=== PATIENT | male | born 1970 | race Caucasian/White ===

== ENCOUNTER 2018-03-28 05:39 | Day surgery (SDC) | payer OTHER ==
[~2018-03-28] VITALS: Ht 167.6 cm; Wt 63.5 kg
--- NOTE | ~2018-03-28 | OP ---
PATIENT NAME: CHARLOTTE PERAZA MEDICAL RECORD: [id number] :74 LOCATION:D[facility] ADMISSION DATE: SURGEON: LUKAS UGALDE MD DATE OF OPERATION: 03/28/2018 PREOPERATIVE DIAGNOSIS: Large reducible symptomatic right inguinal hernia. POSTOPERATIVE DIAGNOSES: 1. Large reducible symptomatic right inguinal pantaloon hernia. 2. Right cord lipoma. PROCEDURES: 1. Open right inguinal hernia with bilayered preperitoneal polypropylene mesh. 2. Excision of right cord lipoma. SURGEON: Lukas Ugalde MD FRAUD MANAGER: None. BLOOD LOSS: Minimal. ANESTHESIA: General. COMPLICATIONS: None. The risks, possible complications and alternatives to the procedure were explained to the patient. He elects to proceed. I saw him in the holding area. He states that he has had this hernia for about a year. Palpation aggravates. Nothing alleviates. We specifically discussed the risk of recurrence of a pseudo-sac hematoma or seroma, the possibility of mesh infection. We also discussed the fact that mesh would have to be used or else the complication rate with recurrence would be very high. OPERATIVE COURSE: The patient was conveyed to the operating room electively on 03/28/2018. General anesthesia was induced by the anesthesia staff. The abdomen and genitals were sterilely prepped and draped. A transverse incision was accomplished in the right groin. Sharp dissection was carried down through skin and subcutaneous tissue as well as Maritza's fascia. The external oblique aponeurosis was opened along the direction of its fibers. I bluntly dissected down through the internal oblique and transverse abdominis muscle layers. A preperitoneal pocket was fashioned bluntly. An indirect hernia was reduced. I opened the hernia sac. There was no sliding component. I excised a portion of the hernia sac and then closed the peritoneum with a running 3-0 Vicryl suture. There was a direct component, which was reduced in its entirety. No femoral component. A right cord lipoma was identified. This was clamped highly. It was then transected with electrocautery. The lipoma was sent to pathology as a single specimen. I then cut 2 ovals out of a polypropylene mesh. The 2 ovals were sutured together one on top of the other with a running #1 Surgidac. The mesh was placed in the preperitoneal space. Once I was satisfied with placement of the mesh, I sutured the muscular layers together with multiple interrupted horizontal mattress 0 Surgidacs. The external oblique aponeurosis was closed OPERATIVE REPORT [id number] CHARLOTTE PERAZA with a running #1 Vicryl. Maritza's fascia was approximated with interrupted 3-0 Vicryls. The subcutaneous adipose tissue was approximated with interrupted 3-0 Vicryls as well. The skin was approximated with a running intracuticular 4-0 Vicryl. Benzoin and Steri-Strips were applied. I had the patient Valsalva. There was no evidence of recurrence or persistent hernia. Both testicles were descended. There is no need for the patient to follow up with me in the office unless he develops complication related to this operative procedure. [facility] and can go into general population. He is going to be dismissed with [place] for pain. He is not to do any lifting or straining for 3 weeks. TRANSINT:[id number] Voice Confirmation ID: [id number] DOCUMENT ID: [id number] LUKAS UGALDE MD at 1603 CC: BALJEET TORRES MD, WHITNEY MADRIGAL JEFFREY MD and YAMILETH,[id number] DICTATION DATE: 03/28/18 0958 HEALTHCARE FINANCIAL ANALYST: 03/28/18 1200 [facility] 03/28/[address] [id number]
[2018-03-28 06:16] VITALS: BP 117/79; Ht 167.6 cm; Wt 63.5 kg
== END 2018-03-28 14:29 | disposition other institution (70) ==
LOC: D.OPS 05:39
DX: K40.90 Unilateral inguinal hernia, without obstruction or gangrene, not specified as recurrent (principal); D17.6 Benign lipomatous neoplasm of spermatic cord; Z01.812 Encounter for preprocedural laboratory examination